=== PATIENT | male | born 1980 | race Caucasian/White ===

== ENCOUNTER 2016-09-15 23:00 | Emergency (ER) | payer SELFPAY ==
[2016-09-15 23:10] VITALS: RESP 18
[2016-09-15] MEDS ORDERED: diphenhydrAMINE 50 MG CAP PO STA (23:51)
[2016-09-15] MEDS ORDERED: FAMOTIDINE 20 MG TAB PO STA (23:51)
[2016-09-15] MEDS ORDERED: predniSONE 20 MG TAB PO STA (23:51)
--- NOTE | 2016-09-15 23:55 | ED ---
Allergic Reaction HPI - General Chief complaint: Allergic Reaction Stated complaint: allergic reaction Time Seen by Provider: 09/15/16 23:29 Source: patient Mode of arrival: ambulatory Limitations: no limitations - History of Present Illness Initial Comments: This patient is a 36-year-old man who presents to be evaluated for what he believes is an ALLERGIC reaction. The patient noticed that he was starting to have hives yesterday. He thought that it was resolved, but it continued to worsen over the course of today and into the evening. He describes hives to his back and trunk as well as the arms and legs. He notes that there is now intense itching. He is not having any cough, wheezing or shortness of breath. He is not having any tongue or lip swelling. The patient does note that he has had previous ALLERGIC reaction, but they cannot determine what it was from then either. He is not sure of any new exposures. Patient denies fever or chills, nausea vomiting or diarrhea. He is not having any pains. MD Complaint: allergic reaction, hives Onset/Timin -: hour(s) Exposure: unknown Symptoms: rash, itching Severity: moderate Treatment Prior to Arrival: none Previous Allergy History: other - Related Data Home Medications Medication Instructions Recorded Confirmed Buprenorphine HCl/Naloxone HCl 1 film SUBLINGUAL TID 09/15/16 09/15/16 [Suboxone 8 mg-2 mg Sl Film] Previous Rx's Medication Instructions Recorded Famotidine [Pepcid] 20 mg PO DAILY #14 tablet 09/15/16 diphenhydrAMINE [Benadryl] 50 mg PO QID PRN #28 capsule 09/15/16 predniSONE 60 mg PO DAILY #30 tab 09/15/16 Allergies Allergy/AdvReac Type Severity Reaction Status Date / Time No Known Allergies Allergy Verified 09/15/16 23:17 Review of Systems ROS Statement: Those systems with pertinent positive or pertinent negative responses have been documented in the HPI. ROS Other: All systems not noted in ROS Statement are negative. Constitutional: Denies: fever, chills, weakness Eyes: Denies: vision change Respiratory: Denies: cough, dyspnea, wheezes, stridor Cardiovascular: Denies: chest pain, palpitations Gastrointestinal: Denies: abdominal pain, nausea, vomiting, diarrhea Skin: Reports: rash. Denies: lesions Neurological: Denies: headache Past Medical History Past Medical History: No Reported History History of Any Multi-Drug Resistant Organisms: None Reported Past Surgical History: No Surgical Hx Reported Past Psychological History: No Psychological Hx Reported Smoking Status: Current every day smoker Past Alcohol Use History: None Reported Past Drug Use History: None Reported General Exam Limitations: no limitations General appearance: alert, in no apparent distress Head exam: Present: atraumatic, normocephalic Eye exam: Present: normal appearance. Absent: scleral icterus, conjunctival injection Respiratory exam: Present: normal lung sounds bilaterally. Absent: respiratory distress, wheezes, rales, rhonchi, stridor Cardiovascular Exam: Present: regular rate, normal rhythm, normal heart sounds. Absent: systolic murmur, diastolic murmur, rubs, gallop Skin exam: Present: warm, dry, intact, normal color, urticaria (Patient has urticaria to the trunk, arms, and legs.) Course Vital Signs 09/15/16 23:06 Temperature 97.1 F L Pulse Rate 111 H Respiratory 18 Rate Blood Pressure 113/69 O2 Sat by Pulse 98 Oximetry Disposition Clinical Impression: Allergic reaction Disposition: HOME SELF-CARE Condition: Good Instructions: Urticaria (ED) Prescriptions: Famotidine [Pepcid] 20 mg PO DAILY #14 tablet diphenhydrAMINE [Benadryl] 50 mg PO QID PRN #28 capsule PRN Reason: Allergic Reaction predniSONE 60 mg PO DAILY #30 tab Referrals: None,Stated [Primary Care Provider] - 1-2 days Kaylie Carlton MD [STAFF PHYSICIAN] - 1-2 days
[2016-09-16 00:39] VITALS: BP 124/67; PULSE 98; TEMP 98.8
== END 2016-09-16 00:39 | disposition home or self-care (01) ==
LOC: EC 23:00
DX: T78.40XA Allergy, unspecified, initial encounter (principal); F17.200 Nicotine dependence, unspecified, uncomplicated; Z79.891 Long term (current) use of opiate analgesic
CPT/HCPCS: 99283; J7512